=== PATIENT | male | born 1965 ===

== ENCOUNTER 2020-04-05 19:49 | Inpatient (IN) | payer OTHER ==
[~2020-04-05] VITALS: Ht 180.3 cm; Wt 123.1 kg
[2020-04-05] MEDS ORDERED: DOCUSATE 100 MG CAPSULE PO PRN (21:00)
[2020-04-05] MEDS ORDERED: BISACODYL 10 MG SUPP PR PRN (21:00)
[2020-04-05] MEDS ORDERED: morphine SULFATE 10 MG/ML, 1ML IVPush PRN (21:00)
[2020-04-05] MEDS ORDERED: ACETAMINOPHEN 325 MG TABLET PO PRN (21:00)
[2020-04-05] MEDS ORDERED: POLYETHYLENE GLYCOL 17 GM PACKET PO PRN (21:00)
[2020-04-05] MEDS ORDERED: ONDANSETRON ODT 4 MG PO PRN (21:00)
[2020-04-05] MEDS ORDERED: NITROGLYCERIN 0.4 MG BOTTLE (25 TABS) SL PRN (21:00)
[2020-04-05] MEDS ORDERED: ONDANSETRON 2MG/ML, 2ML IVPush PRN (21:00)
[2020-04-05] MEDS ORDERED: hydrALAzine 20 MG/ML, 1ML IVPush PRN (21:00)
[2020-04-05] MEDS ORDERED: PLEASE ENTER HEIGHT AND WEIGHT MC SCH (21:00)
[2020-04-05] MEDS ORDERED: PROMETHAZINE 25 MG/ML, 1ML IM PRN (21:00)
[2020-04-05] MEDS ORDERED: PLEASE ENTER ALLERGIES MC SCH (21:00)
[2020-04-05] MEDS ORDERED: OXYcodone IR 5MG TABLET PO PRN (21:00)
[2020-04-05 21:30] VITALS: BP 94/68
[2020-04-05 21:31] LABS: BASOPHILS % (AUTO) 0 % (0-1); EOSINOPHILS # (AUTO) 0.02 x10^3/uL (0-0.4); EOSINOPHILS % (AUTO) 0 % (1-7); LYMPHOCYTES # (AUTO) 1.32 x10^3/uL (1-3.4); LYMPHOCYTES % (AUTO) 10 % (22-44); MD NO; MEAN CORPUSCULAR HEMOGLOBIN 32.3 pg (27.5-34.5); MEAN CORPUSCULAR HGB CONC 33.3 g/dL (33.2-36.2); MEAN CORPUSCULAR VOLUME 97.1 fL (81-97); MEAN PLATELET VOLUME 8.9 fL (7.4-10.4); MONOCYTES # (AUTO) 0.12 x10^3/uL (0.2-0.8); MONOCYTES % (AUTO) 1 % (2-9); NEUTROPHILS # (AUTO) 11.56 x10^3/uL (1.8-6.8); NEUTROPHILS % (AUTO) 89 % (42-75); PLATELET COUNT 222 x10^3/uL (130-400); RED BLOOD COUNT 5.31 x10^6/uL (4.38-5.82); RED CELL DISTRIBUTION WIDTH 12.8 % (9.4-14.8)
[2020-04-05 21:32] VITALS: BP 94/68
[2020-04-05] MEDS ORDERED: METF10007 PO (21:35)
[2020-04-05] MEDS ORDERED: LISI-420 PO (21:36)
[2020-04-05 21:39] LABS: INTERNATIONAL NORMALIZED RATIO 1.25 (0.93-1.1); PROTHROMBIN TIME 12.9 Seconds (9.6-11.5)
[2020-04-05 21:42] LABS: ALANINE AMINOTRANSFERASE 83 U/L (12-78); ALBUMIN 3.8 g/dL (3.4-5.0); ANION GAP 8 mmol/L (5-15); CALCIUM 8.6 mg/dL (8.5-10.1); CHLORIDE 105 mmol/L (98-107); CREATININE 1.38 mg/dL (0.7-1.3)
[2020-04-05 21:47] LABS: ALKALINE PHOSPHATASE 42 U/L (45-117); BILIRUBIN,TOTAL 1.9 mg/dL (0.2-1.0); FREE T4 (FREE THYROXINE) 1.13 ng/dL (0.76-1.46); TOTAL PROTEIN 7.2 g/dL (6.4-8.2); TROPONIN I 0.232 ng/mL (0.000-0.045)
[2020-04-05] MEDS ORDERED: HEPARIN 25,000 UNITS/250ML PMX 250 ML IV PRN (22:00)
[2020-04-05] MEDS ORDERED: HEPARIN 5,000 UNITS/ML, 1ML IV ONE (22:00)
[2020-04-05] MEDS ORDERED: HEPARIN 5,000 UNITS/ML, 1ML IV PRN (22:00)
[2020-04-05] MEDS ORDERED: FUROSEMIDE 20 MG/2 ML IV ONE (22:30)
[2020-04-05] MEDS: INSULIN LISPRO 100 UNITS/ML, PEN SQ-INSULIN SCH (22:37)
[2020-04-06 00:37] LABS: TROPONIN I 0.206 ng/mL (0.000-0.045)
[2020-04-06 02:16] VITALS: BP 97/60
[2020-04-06 05:54] LABS: ANION GAP 10 mmol/L (5-15); CHLORIDE 107 mmol/L (98-107)
[2020-04-06 05:59] LABS: CHOL/HDL RATIO 3.7; CHOLESTEROL, TOTAL 144 mg/dL (140-239); CREATININE 1.19 mg/dL (0.7-1.3); HDL CHOL % 27 % (26-37); HDL CHOLESTEROL (DIRECT) 39 mg/dL (40-60); LDL CHOLESTEROL,CALCULATED 84 mg/dL (54-169); LDL/HDL RATIO 2.2 (0.5-3.0); TRIGLYCERIDES 104 mg/dL (50-200); VLDL CHOLESTEROL 21 mg/dL (0-25)
[2020-04-06] MEDS ORDERED: ASPIRIN 325 MG TABLET EC PO SCH (06:00)
[2020-04-06 06:10] LABS: BASOPHILS # (AUTO) 0.01 x10^3/uL (0-0.1); BASOPHILS % (AUTO) 0 % (0-1); EOSINOPHILS % (AUTO) 0 % (1-7); LYMPHOCYTES # (AUTO) 1.51 x10^3/uL (1-3.4); LYMPHOCYTES % (AUTO) 16 % (22-44); MD NO; MEAN CORPUSCULAR HEMOGLOBIN 32.2 pg (27.5-34.5); MEAN CORPUSCULAR HGB CONC 33.3 g/dL (33.2-36.2); MEAN CORPUSCULAR VOLUME 96.7 fL (81-97); MEAN PLATELET VOLUME 9.3 fL (7.4-10.4); MONOCYTES # (AUTO) 0.34 x10^3/uL (0.2-0.8); MONOCYTES % (AUTO) 4 % (2-9); NEUTROPHILS # (AUTO) 7.88 x10^3/uL (1.8-6.8); NEUTROPHILS % (AUTO) 81 % (42-75); PLATELET COUNT 219 x10^3/uL (130-400); RED BLOOD COUNT 5.18 x10^6/uL (4.38-5.82); RED CELL DISTRIBUTION WIDTH 12.8 % (9.4-14.8)
[2020-04-06 08:04] VITALS: BP 115/78
[2020-04-06] MEDS: INSULIN LISPRO 100 UNITS/ML, PEN SQ-INSULIN SCH ×4 (09:04→21:03)
[2020-04-06] MEDS ORDERED: DILTIAZEM 30 MG TABLET PO SCH (10:30)
[2020-04-06 12:56] VITALS: BP 116/84
[2020-04-06] MEDS ORDERED: DILTIAZEM 5 MG/ML, 5ML IVPush ONE (13:00)
[2020-04-06] MEDS ORDERED: PROPOFOL 10 MG/ML, 20ML ONE (14:56)
[2020-04-06] MEDS ORDERED: FUROSEMIDE 20 MG/2 ML IV ONE (15:30)
[2020-04-06] MEDS: METOPROLOL TARTRATE 25 MG TAB PO SCH (18:24)
[2020-04-06 20:48] VITALS: BP 113/79
[2020-04-06] MEDS: APIXABAN 5 MG TABLET PO SCH (21:03)
[2020-04-06] MEDS: LISINOPRIL 5 MG TABLET PO SCH (21:03)
[2020-04-07] VITALS (7 sets, daily range): BP systolic 99–151; BP diastolic 62–81
[2020-04-07] MEDS: METOPROLOL TARTRATE 25 MG TAB PO SCH ×3 (06:32→23:15)
[2020-04-07 06:41] LABS: BASOPHILS # (AUTO) 0.07 x10^3/uL (0-0.1); BASOPHILS % (AUTO) 1 % (0-1); EOSINOPHILS # (AUTO) 0.08 x10^3/uL (0-0.4); EOSINOPHILS % (AUTO) 1 % (1-7); LYMPHOCYTES # (AUTO) 2.54 x10^3/uL (1-3.4); LYMPHOCYTES % (AUTO) 24 % (22-44); MD NO; MEAN CORPUSCULAR HEMOGLOBIN 32.5 pg (27.5-34.5); MEAN CORPUSCULAR HGB CONC 33.4 g/dL (33.2-36.2); MEAN CORPUSCULAR VOLUME 97.3 fL (81-97); MEAN PLATELET VOLUME 9.5 fL (7.4-10.4); MONOCYTES # (AUTO) 0.68 x10^3/uL (0.2-0.8); MONOCYTES % (AUTO) 6 % (2-9); NEUTROPHILS # (AUTO) 7.25 x10^3/uL (1.8-6.8); NEUTROPHILS % (AUTO) 68 % (42-75); PLATELET COUNT 192 x10^3/uL (130-400); RED BLOOD COUNT 4.88 x10^6/uL (4.38-5.82); RED CELL DISTRIBUTION WIDTH 13.1 % (9.4-14.8)
[2020-04-07 06:48] LABS: CHLORIDE 105 mmol/L (98-107)
[2020-04-07 06:55] LABS: ALANINE AMINOTRANSFERASE 95 U/L (12-78); ALBUMIN 3.9 g/dL (3.4-5.0); ALKALINE PHOSPHATASE 44 U/L (45-117); ANION GAP 6 mmol/L (5-15); BILIRUBIN,TOTAL 2.5 mg/dL (0.2-1.0); CALCIUM 9.1 mg/dL (8.5-10.1); CREATININE 1.16 mg/dL (0.7-1.3); TOTAL PROTEIN 7.3 g/dL (6.4-8.2)
[2020-04-07] MEDS: INSULIN LISPRO 100 UNITS/ML, PEN SQ-INSULIN SCH ×4 (07:00→21:18)
[2020-04-07] MEDS ORDERED: REGADENOSON 0.4 MG/5 ML SYRINGE ONE (08:18)
[2020-04-07] MEDS: APIXABAN 5 MG TABLET PO SCH ×2 (10:56→21:17)
[2020-04-07] MEDS: LISINOPRIL 5 MG TABLET PO SCH ×2 (10:57→21:46)
[2020-04-07] MEDS: FUROSEMIDE 20 MG/2 ML IV SCH ×2 (13:53→21:17)
[2020-04-07] MEDS ORDERED: metFORMIN 500 MG TABLET PO ONE (15:00)
[2020-04-07] MEDS: POTASSIUM CHLORIDE 20 MEQ TAB.ER.PRT PO SCH (18:34)
[2020-04-08 05:42] LABS: BASOPHILS # (AUTO) 0.05 x10^3/uL (0-0.1); BASOPHILS % (AUTO) 1 % (0-1); EOSINOPHILS # (AUTO) 0.11 x10^3/uL (0-0.4); EOSINOPHILS % (AUTO) 1 % (1-7); LYMPHOCYTES # (AUTO) 1.99 x10^3/uL (1-3.4); LYMPHOCYTES % (AUTO) 20 % (22-44); MD NO; MEAN CORPUSCULAR HEMOGLOBIN 32.5 pg (27.5-34.5); MEAN CORPUSCULAR HGB CONC 33.6 g/dL (33.2-36.2); MEAN CORPUSCULAR VOLUME 96.6 fL (81-97); MEAN PLATELET VOLUME 9.2 fL (7.4-10.4); MONOCYTES % (AUTO) 7 % (2-9); NEUTROPHILS # (AUTO) 7.05 x10^3/uL (1.8-6.8); NEUTROPHILS % (AUTO) 71 % (42-75); PLATELET COUNT 186 x10^3/uL (130-400); RED BLOOD COUNT 4.87 x10^6/uL (4.38-5.82); RED CELL DISTRIBUTION WIDTH 12.6 % (9.4-14.8)
[2020-04-08 05:48] LABS: ALANINE AMINOTRANSFERASE 90 U/L (12-78); ALBUMIN 3.8 g/dL (3.4-5.0); ANION GAP 11 mmol/L (5-15); CALCIUM 8.7 mg/dL (8.5-10.1); CHLORIDE 104 mmol/L (98-107); CREATININE 0.91 mg/dL (0.7-1.3)
[2020-04-08 05:50] LABS: ALKALINE PHOSPHATASE 46 U/L (45-117); TOTAL PROTEIN 6.9 g/dL (6.4-8.2)
[2020-04-08 08:03] VITALS: BP 114/83
[2020-04-08] MEDS: FUROSEMIDE 20 MG/2 ML IV SCH ×2 (08:43→16:56)
[2020-04-08] MEDS: POTASSIUM CHLORIDE 20 MEQ TAB.ER.PRT PO SCH ×2 (08:44→16:56)
[2020-04-08] MEDS: APIXABAN 5 MG TABLET PO SCH ×2 (08:44→20:03)
[2020-04-08] MEDS: metFORMIN 500 MG TABLET PO SCH (08:44)
[2020-04-08] MEDS: METOPROLOL TARTRATE 25 MG TAB PO SCH ×3 (08:45→23:40)
[2020-04-08] MEDS: LISINOPRIL 5 MG TABLET PO SCH (08:45)
[2020-04-08] MEDS: INSULIN LISPRO 100 UNITS/ML, PEN SQ-INSULIN SCH ×4 (08:49→20:57)
[2020-04-08 12:20] VITALS: BP 104/74
[2020-04-08] MEDS ORDERED: GADOTERATE 5 MMOL/10 ML VIAL ONE (15:28)
[2020-04-08] MEDS ORDERED: GADOTERATE 10 MMOL/20 ML VIAL ONE (15:28)
[2020-04-08 20:00] VITALS: BP 108/63
[2020-04-08 23:11] VITALS: BP 107/71
[2020-04-09 01:17] VITALS: BP 101/69
[2020-04-09 04:54] LABS: BASOPHILS # (AUTO) 0.03 x10^3/uL (0-0.1); BASOPHILS % (AUTO) 0 % (0-1); EOSINOPHILS # (AUTO) 0.15 x10^3/uL (0-0.4); EOSINOPHILS % (AUTO) 2 % (1-7); LYMPHOCYTES # (AUTO) 1.73 x10^3/uL (1-3.4); LYMPHOCYTES % (AUTO) 19 % (22-44); MD NO; MEAN CORPUSCULAR HEMOGLOBIN 32.2 pg (27.5-34.5); MEAN CORPUSCULAR HGB CONC 33.6 g/dL (33.2-36.2); MEAN CORPUSCULAR VOLUME 95.8 fL (81-97); MEAN PLATELET VOLUME 9.1 fL (7.4-10.4); MONOCYTES # (AUTO) 0.65 x10^3/uL (0.2-0.8); MONOCYTES % (AUTO) 7 % (2-9); NEUTROPHILS % (AUTO) 72 % (42-75); PLATELET COUNT 196 x10^3/uL (130-400); RED BLOOD COUNT 5.02 x10^6/uL (4.38-5.82); RED CELL DISTRIBUTION WIDTH 12.9 % (9.4-14.8)
[2020-04-09 05:03] LABS: ALBUMIN 3.7 g/dL (3.4-5.0); ANION GAP 6 mmol/L (5-15); CALCIUM 9.3 mg/dL (8.5-10.1); CHLORIDE 104 mmol/L (98-107)
[2020-04-09 05:06] LABS: ALANINE AMINOTRANSFERASE 77 U/L (12-78); ALKALINE PHOSPHATASE 48 U/L (45-117); BILIRUBIN,TOTAL 2.9 mg/dL (0.2-1.0); CREATININE 1.01 mg/dL (0.7-1.3); TOTAL PROTEIN 7.3 g/dL (6.4-8.2)
[2020-04-09 07:20] VITALS: BP 119/86
[2020-04-09] MEDS: FUROSEMIDE 20 MG/2 ML IV SCH (08:51)
[2020-04-09] MEDS: INSULIN LISPRO 100 UNITS/ML, PEN SQ-INSULIN SCH ×4 (08:52→21:00)
[2020-04-09] MEDS: METOPROLOL TARTRATE 25 MG TAB PO SCH (08:52)
[2020-04-09] MEDS: POTASSIUM CHLORIDE 20 MEQ TAB.ER.PRT PO SCH (08:52)
[2020-04-09] MEDS: metFORMIN 500 MG TABLET PO SCH (08:52)
[2020-04-09] MEDS: LISINOPRIL 5 MG TABLET PO SCH (08:53)
[2020-04-09] MEDS: APIXABAN 5 MG TABLET PO SCH ×2 (08:53→21:34)
[2020-04-09 13:06] VITALS: BP 105/83
[2020-04-09] MEDS: SPIRONOLACTONE 25 MG TABLET PO SCH (14:38)
[2020-04-09] MEDS: METOPROLOL SUCCINATE 50 MG TAB.ER.24H PO SCH (18:11)
[2020-04-09 20:06] VITALS: BP 119/78
[2020-04-10 01:20] VITALS: BP 125/88
[2020-04-10 05:34] VITALS: BP 111/77
[2020-04-10] MEDS: METOPROLOL SUCCINATE 50 MG TAB.ER.24H PO SCH (05:34)
[2020-04-10 05:55] LABS: CHLORIDE 102 mmol/L (98-107)
[2020-04-10 06:08] LABS: ANION GAP 7 mmol/L (5-15); CALCIUM 9.5 mg/dL (8.5-10.1); CREATININE 1.08 mg/dL (0.7-1.3)
[2020-04-10] MEDS: APIXABAN 5 MG TABLET PO SCH (07:43)
[2020-04-10] MEDS: SPIRONOLACTONE 25 MG TABLET PO SCH (07:43)
[2020-04-10] MEDS: metFORMIN 500 MG TABLET PO SCH (07:43)
[2020-04-10] MEDS: INSULIN LISPRO 100 UNITS/ML, PEN SQ-INSULIN SCH ×2 (07:44→11:25)
[2020-04-10] MEDS: LISINOPRIL 5 MG TABLET PO SCH (07:44)
[2020-04-10 08:30] VITALS: BP 117/79
[2020-04-10] MEDS ORDERED: FUROSEMIDE 40 MG TABLET PO SCH (09:00)
[2020-04-10] MEDS ORDERED: FUROSEMIDE 20 MG TABLET PO SCH (09:00)
[2020-04-10] MEDS ORDERED: METOPROLOL SUCCINATE 25 MG TAB.ER.24H PO SCH (12:00)
[2020-04-10] MEDS ORDERED: METO25TA91 PO (13:41)
[2020-04-10] MEDS ORDERED: LISI5TAB7 PO (13:41)
[2020-04-10] MEDS ORDERED: SPIR25TA PO (13:41)
[2020-04-10] MEDS ORDERED: APIX5TAB PO (13:41)
[2020-04-10] MEDS ORDERED: FURO40TA6 PO (13:41)
[2020-04-10 13:48] VITALS: BP 120/79
== END 2020-04-10 16:15 | disposition home or self-care (01) | DRG 280 ==
LOC: 5SO 19:49 → DCLOUNGE 04-10 15:50
PROVIDERS: ADMIT Psychiatry & Neurology Psychosomatic Medicine; ATTEND Psychiatry & Neurology Psychosomatic Medicine
PROC: B245ZZ4 Ultrasonography of Left Heart, Transesophageal (ICD-10-PCS; 2020-04-06)
PROC: 5A2204Z Restoration of Cardiac Rhythm, Single (ICD-10-PCS; principal; 2020-04-06 15:00)
DX: I21.4 Non-ST elevation (NSTEMI) myocardial infarction (principal); I50.41 Acute combined systolic (congestive) and diastolic (congestive) heart failure; I48.92 Unspecified atrial flutter; D68.69 Other thrombophilia; I45.89 Other specified conduction disorders; I47.1 Supraventricular tachycardia; I11.0 Hypertensive heart disease with heart failure; K76.1 Chronic passive congestion of liver; E11.9 Type 2 diabetes mellitus without complications; E78.5 Hyperlipidemia, unspecified; G47.33 Obstructive sleep apnea (adult) (pediatric); F10.10 Alcohol abuse, uncomplicated; I08.0 Rheumatic disorders of both mitral and aortic valves; Z20.828 Contact with and (suspected) exposure to other viral communicable diseases; K76.0 Fatty (change of) liver, not elsewhere classified; Z87.891 Personal history of nicotine dependence; Z80.8 Family history of malignant neoplasm of other organs or systems; Z79.84 Long term (current) use of oral hypoglycemic drugs; Z79.899 Other long term (current) drug therapy
CPT/HCPCS: 36415; 71046; 74183; 76700; 78452; 80048; 80053; 80061; 82962; 83036; 83735; 84439; 84443; 84484; 85025; 85520; 85610; 87635; 92960; 93005; 93017; 93306; 93312; 93356; A9575; G0378; J1644; J2704; J2785; A9502; C9898; J1815; J1940

== ENCOUNTER → 2020-06-12 | Outpatient (CLI) | payer OTHER ==
[~2020-06-12] MED LIST: APIX5TAB PO; FURO40TA6 PO; LISI-420 PO; LISI5TAB7 PO; METF10007 PO; METO25TA91 PO; SPIR25TA PO
== END | disposition home or self-care (01) ==
LOC: CVU 07:23
PROVIDERS: ATTEND Internal Medicine Cardiovascular Disease
DX: I08.8 Other rheumatic multiple valve diseases (principal); E11.9 Type 2 diabetes mellitus without complications; I11.0 Hypertensive heart disease with heart failure; I50.9 Heart failure, unspecified; I48.91 Unspecified atrial fibrillation
CPT/HCPCS: 93306; 93356